=== PATIENT | male | born 1960 | race Caucasian/White ===

== ENCOUNTER → 2016-05-06 | Outpatient (REF) | payer OTHER | LOC: M SFHCPLAZ 13:16 | PROVIDERS: ATTEND Nurse Practitioner Adult Health | DX: Z00.00 Encounter for general adult medical examination without abnormal findings (principal); Z53.8 Procedure and treatment not carried out for other reasons ==

== ENCOUNTER 2018-12-22 20:15 | Emergency (ER) | payer MEDICAID, OTHER, SELFPAY ==
[~2018-12-22] VITALS: Ht 180.3 cm; Wt 88.6 kg
[2018-12-22] MEDS ORDERED: ONDANSETRON 4 MG ORAL DISINTEGRATING TAB (Q0162 PER 1MG) PO ONE (20:30)
--- NOTE | 2018-12-22 21:18 | REPVR ---
PROCEDURE INFORMATION: Exam: CT Head Without Contrast Exam date and time: 12/22/2018 8:48 PM Clinical history: 58 years old, male; Injury or trauma; Fall; Initial encounter; Additional info: Fall head injury TECHNIQUE: Imaging protocol: Computed tomography of the head without contrast. Radiation optimization: All CT scans at this facility use at least one of these dose optimization techniques: automated exposure control; mA and/or kV adjustment per patient size (includes targeted exams where dose is matched to clinical indication); or iterative reconstruction. COMPARISON: No relevant prior studies available. FINDINGS: Brain: Normal. No hemorrhage. Unremarkable white matter. No mass effect. Ventricles: Normal. No ventriculomegaly. Bones/joints: Unremarkable. No acute fracture. Sinuses: Visualized sinuses are unremarkable. No fluid levels. Mastoid air cells: Visualized mastoid air cells are well aerated. Soft tissues: Unremarkable. IMPRESSION: No acute intracranial abnormality. Electronically signed by: Nick Mejia On 12/22/2018 21:18:03 PM
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
[2018-12-22 23:33] VITALS: BP 134/84
[2018-12-23] MEDS ORDERED: TRAZ-163 (14:28)
[2018-12-23] MEDS ORDERED: OXCA300T14 (14:28)
[2018-12-23] MEDS ORDERED: HYDR50TA70 (14:28)
[2018-12-23] MEDS ORDERED: OLAN20TA14 (14:28)
[2018-12-23] MEDS ORDERED: VENTAER (17:27)
[2018-12-23] MEDS ORDERED: ZOLO25TA PO (17:27)
== END 2018-12-22 23:34 | disposition home or self-care (01) ==
LOC: M ED 20:15
DX: F10.20 Alcohol dependence, uncomplicated (principal); S00.01XA Abrasion of scalp, initial encounter; V18.0XXA Pedal cycle driver injured in noncollision transport accident in nontraffic accident, initial encounter; Y92.410 Unspecified street and highway as the place of occurrence of the external cause; Z79.899 Other long term (current) drug therapy
CPT/HCPCS: 70450; 72125; 99283; Q0162

== ENCOUNTER 2018-12-23 14:13 | Emergency (ER) | payer MEDICAID, OTHER ==
[~2018-12-23] VITALS: Ht 180.3 cm; Wt 90.7 kg
[2018-12-23] MEDS ORDERED: OLAN20TA14 (14:28)
[2018-12-23] MEDS ORDERED: TRAZ-163 (14:28)
[2018-12-23] MEDS ORDERED: OXCA300T14 (14:28)
[2018-12-23] MEDS ORDERED: HYDR50TA70 (14:28)
--- NOTE | 2018-12-23 16:53 | REP ---
Right shoulder: Three views: History: Pain. Findings: Three views of the right shoulder demonstrate normal alignment of the glenohumeral articulation. There is mild widening of the AC joint. The distal clavicle is positioned slightly superior where relative to the acromion process. This raises a question of AC separation injury. No fracture is seen. Impression: Question first degree AC separation injury. No fracture noted. Electronically Signed by Gómez Collins MD 12/23/2018 06:40 P
--- NOTE | 2018-12-23 16:54 | REP ---
Right rib series: Five views including PA chest. History: Pain. Findings: PA chest radiograph is unremarkable. There is no evidence of pneumothorax or hydrothorax. Mediastinum is not widened. Heart is not enlarged. Multiple views of the right ribcage demonstrate a very slightly displaced fracture of the anterolateral 6th rib. Equivocal 5th and 4th rib fractures are noted. No other fracture is seen. Impression: Right anterolateral 6th rib fracture. Question right fourth and fifth rib fractures. Electronically Signed by Gómez Collins MD 12/23/2018 06:40 P
[2018-12-23] MEDS ORDERED: ZOLO25TA PO (17:27)
[2018-12-23] MEDS ORDERED: VENTAER (17:27)
[2018-12-23] MEDS ORDERED: ACETAMINOPHEN 325 MG TAB PO ONE (17:45)
[2018-12-23 19:06] VITALS: BP 145/89
== END 2018-12-23 19:10 | disposition home or self-care (01) ==
LOC: M ED 14:13
DX: S22.31XA Fracture of one rib, right side, initial encounter for closed fracture (principal); S43.51XA Sprain of right acromioclavicular joint, initial encounter; V18.0XXA Pedal cycle driver injured in noncollision transport accident in nontraffic accident, initial encounter; Y92.018 Other place in single-family (private) house as the place of occurrence of the external cause; Z79.899 Other long term (current) drug therapy

== ENCOUNTER 2019-02-19 16:42 | Inpatient (IN) | payer MEDICAID, OTHER ==
[~2019-02-19] VITALS: Ht 180.3 cm; Wt 86.2 kg
[~2019-02-19 16:42] MED LIST: HYDR50TA70; OLAN20TA14; OXCA300T14; TRAZ-163 PO; VENTAER INH; ZOLO25TA PO
[2019-02-19] MEDS ORDERED: MORPHINE 4 MG/ML 1ML VIAL/SYRINGE (J2270) IV ONE ×2 (17:00→18:30)
--- NOTE | 2019-02-19 18:22 | REP ---
PELVIS AND RIGHT HIP: AP view of the pelvis and AP and frogleg views of the right hip are performed. There is a nondisplaced fracture of the right femoral neck. I see no other evidence of acute fracture or dislocation. IMPRESSION: Nondisplaced fracture right femoral neck. Electronically Signed by Neto Arrieta MD 02/24/2019 09:57 A
[2019-02-19] MEDS ORDERED: NS 1,000 ML IV SCH (18:30)
--- NOTE | 2019-02-19 18:48 | REP ---
RIGHT FEMUR: AP and lateral views of the right femur were performed. There is a nondisplaced fracture of the right femoral neck. No other acute fracture or dislocation is seen. IMPRESSION: Nondisplaced fracture right femoral neck. Electronically Signed by Neto Arrieta MD 02/24/2019 09:57 A
[2019-02-19 19:05] LABS: BASO % 0.4 % (0.0-1.0); EOS # 0.1 10^3/uL (0.0-0.5); EOS % 1.3 % (0.0-3.0); HEMATOCRIT 46.7 % (42.0-52.0); HEMOGLOBIN 15.6 g/dl (13.5-17.5); LYMPH # 2.5 10^3/uL (1.5-5.0); LYMPH % 32.5 % (24.0-44.0); MEAN CORPUSCULAR HEMOGLOBIN 30.1 pg (27.0-33.0); MEAN CORPUSCULAR HGB CONC 33.4 g/dl (32.0-36.5); MEAN CORPUSCULAR VOLUME 90.2 fl (80.0-96.0); MONO # 0.3 10^3/uL (0.0-0.8); MONO % 4.4 % (0.0-5.0); NEUTROPHILS # 4.7 10^3/uL (1.5-8.5); NEUTROPHILS % 61.1 % (36.0-66.0); PLATELET COUNT, AUTOMATED 210 10^3/uL (150-450); RED BLOOD COUNT 5.18 10^6/uL (4.30-6.10); WHITE BLOOD COUNT 7.7 10^3/uL (4.0-10.0)
[2019-02-19] MEDS ORDERED: OLAN5TAB PO (19:18)
[2019-02-19] MEDS ORDERED: NALT50TA4 PO (19:18)
[2019-02-19] MEDS ORDERED: SERT-138 PO (19:18)
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
[2019-02-19 19:33] LABS: BLOOD UREA NITROGEN 16 MG/DL (7-18); CALCIUM LEVEL 8.8 MG/DL (8.5-10.1); CARBON DIOXIDE LEVEL 26 MEQ/L (21-32); CHLORIDE LEVEL 107 MEQ/L (98-107); ETHYL ALCOHOL (ETHANOL) 0.094 % (0.000-0.010); GLOMERULAR FILTRATION RATE > 60.0 (>56); GLUCOSE, FASTING 87 MG/DL (70-100); POTASSIUM SERUM 4.3 MEQ/L (3.5-5.1); SODIUM LEVEL 141 MEQ/L (136-145)
[2019-02-19] MEDS ORDERED: ACETAMINOPHEN *IV* 1,000 MG in IV 1 EA IV ONE (20:00)
[2019-02-19] MEDS ORDERED: LR 1,000 ML IV SCH (20:00)
[2019-02-19] MEDS ORDERED: LORazepam 2 MG/ML VIAL (J2060) IV PRN ×2 (20:00→21:30)
[2019-02-19] MEDS: MORPHINE 2 MG/ML 1ML VIAL (J2270) IV PRN ×2 (20:29→22:46)
[2019-02-19 20:39] LABS: NT-PRO BNP 53 PG/ML (<125)
--- NOTE | 2019-02-19 21:30 | REPVR ---
PROCEDURE INFORMATION: Exam: CT Pelvis Without Contrast; Skeletal Exam date and time: 02/19/2019 8:54 PM Age: 58 years old Clinical history: Injury or trauma; Fall; Initial encounter; Fracture of pelvis & hip; Right; Not specified; Neck of femur; Additional info: Trauma, per ortho TECHNIQUE: Imaging protocol: Computed tomography images of the pelvis without contrast. Exam focused on the skeletal structures. Radiation optimization: All CT scans at this facility use at least one of these dose optimization techniques: automated exposure control; mA and/or kV adjustment per patient size (includes targeted exams where dose is matched to clinical indication); or iterative reconstruction. COMPARISON: CR Hip,AP,LAT to include Pelvis 02/19/2019 5:45 PM FINDINGS: Symphysis and sacroiliac joints are aligned normally. Acute impacted nondisplaced right oblique femoral neck fracture. Obturator rings appear intact. No evidence of femoral head osteonecrosis. No osseous lesion. Hip joint spaces are appropriate for age. Soft tissues of the pelvis are unremarkable. IMPRESSION: Acute nondisplaced slightly impacted right femoral neck fracture without underlying osseous injury Electronically signed by: Abad Conde On 02/19/2019 21:30:15 PM
[2019-02-19 21:40] VITALS: BP 121/84
[2019-02-19 22:00] VITALS: BP 121/84
[2019-02-19] MEDS ORDERED: ALBUTEROL 90 MCG/ACT 8GM HFA INHALER INH PRN (22:00)
[2019-02-19 22:33] LABS: INR 1.06; PROTHROMBIN TIME 13.5 SECONDS (11.8-14.0)
[2019-02-19] MEDS: NALTREXONE 50 MG TAB PO SCH ×2 (22:42→22:53)
[2019-02-19] MEDS: traZODone 100 MG TAB PO SCH (22:44)
[2019-02-19] MEDS: OLANZapine 5 MG TAB PO SCH (22:45)
[2019-02-19] MEDS: FOLIC ACID 1 MG in NS 50 ML IV SCH (22:46)
[2019-02-19] MEDS: LR 1,000 ML IV SCH (22:47)
[2019-02-20] MEDS: MORPHINE 2 MG/ML 1ML VIAL (J2270) IV PRN ×8 (00:43→18:39)
--- NOTE | 2019-02-20 05:22 | REP ---
CHEST, TWO VIEWS: There is no evidence of acute infiltrate. No pleural effusion is seen. The heart is normal in size. The mediastinal silhouette is unremarkable. The visualized osseous structures are intact. IMPRESSION: No acute pulmonary disease. Electronically Signed by Neto Arrieta MD 02/24/2019 10:11 A
[2019-02-20 06:00] VITALS: BP 145/73
[2019-02-20 06:23] LABS: HEMATOCRIT 43.8 % (42.0-52.0); HEMOGLOBIN 14.8 g/dl (13.5-17.5); MEAN CORPUSCULAR HEMOGLOBIN 30.6 pg (27.0-33.0); MEAN CORPUSCULAR HGB CONC 33.8 g/dl (32.0-36.5); MEAN CORPUSCULAR VOLUME 90.7 fl (80.0-96.0); PLATELET COUNT, AUTOMATED 158 10^3/uL (150-450); RED BLOOD COUNT 4.83 10^6/uL (4.30-6.10); WHITE BLOOD COUNT 7.5 10^3/uL (4.0-10.0)
[2019-02-20 06:46] LABS: INR 1.18; PROTHROMBIN TIME 14.7 SECONDS (11.8-14.0)
[2019-02-20 06:48] LABS: BLOOD UREA NITROGEN 12 MG/DL (7-18); CALCIUM LEVEL 8.5 MG/DL (8.5-10.1); CARBON DIOXIDE LEVEL 27 MEQ/L (21-32); CHLORIDE LEVEL 101 MEQ/L (98-107); CREATININE FOR GFR 1.01 MG/DL (0.70-1.30); GLOMERULAR FILTRATION RATE > 60.0 (>56); GLUCOSE, FASTING 106 MG/DL (70-100); POTASSIUM SERUM 3.9 MEQ/L (3.5-5.1); SODIUM LEVEL 137 MEQ/L (136-145)
[2019-02-20] MEDS: LR 1,000 ML IV SCH ×2 (08:54→18:39)
[2019-02-20] MEDS: SERTRALINE 100 MG TAB PO SCH (08:55)
[2019-02-20] MEDS: THIAMINE HCL 200 MG/2 ML VIAL (J3411) IM SCH (08:55)
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
[2019-02-20 14:00] VITALS: BP 138/85
[2019-02-20] MEDS ORDERED: ceFAZolin SOD 2 GM in IV 1 EA IV ONE (17:45)
--- NOTE | 2019-02-20 17:51 | IPNPDOC ---
Date Seen The patient was seen on 02/20/19. Progress Note SUBJECTIVE: Patient reports having significant pain in the R. hip in morning but otherwise denies any other complaints. Denies any SOB. No acute events reported overnight. Planned for surgery today. OBJECTIVE PHYSICAL EXAMINATION: VITAL SIGNS: Please see below. General: Mild to moderate distress, Alert Eyes: Normal sclera, EOMI, MARGARITA HENT: Atraumatic Cardiovascular: Normal rate, normal rhythm. Pulmonary: Clear to auscultation b/l, no wheezing GI: Soft, nontender, nondistended MSK: reduced ROM RLE due to pain. Skin: Warm and dry Neuro: CN grossly intact. No focal deficits. Strengths equal b/l. Psych: oriented x 3 LABORATORY DATA, IMAGING STUDIES, MICROBIOLOGY: Please see below. ASSESSMENT AND PLAN: 1. R. femoral neck fracture 2/2 mechanical fall - Planned or surgery today with Ortho. NPO - Pain control. - PT eval and treatment. - Fall precautions. 2. Osteoporosis - definition of osteoporosis due to fragility fracture given age. - will need work up and treatment as outpatient. 3. Asthma - Not in exacerbation. Denies any SOB. - Albuterol PRN. 4. Depression/anxiety - resume home meds. 5. Alcohol use - Thiamine, folate and multivitamin. DVT ppx: SCDs and likely xarelto post op VS, I&O, 24H, Fishbone Vital Signs/I&O Vital Signs Date Time Temp Pulse Resp B/P (MAP) Pulse Ox O2 Delivery O2 Flow Rate FiO2 02/20/19 16:05 16 02/20/19 14:00 99.2 72 138/85 (102) 92 Room Air I&O- Last 24 Hours up to 6 AM 02/20/19 06:00 Intake Total 870.2 ml Output Total 200 ml Balance 670.2 ml Laboratory Data 24H LABS Laboratory Tests 2 02/19/19 18:53: Immature Granulocyte % (Auto) 0.3, Neutrophils (%) (Auto) 61.1, Lymphocytes (%) (Auto) 32.5, Monocytes (%) (Auto) 4.4, Eosinophils (%) (Auto) 1.3, Basophils (%) (Auto) 0.4, Neutrophils # (Auto) 4.7, Lymphocytes # (Auto) 2.5, Monocytes # (Auto) 0.3, Eosinophils # (Auto) 0.1, Basophils # (Auto) 0.0, Nucleated Red Blood Cells % (auto) 0.0, Anion Gap 8, Glomerular Filtration Rate > 60.0, Calcium Level 8.8, JL-Qle-V-Type Natriuretic Peptide 53, Ethyl Alcohol Level 0.094H 02/19/19 22:08: Prothrombin Time 13.5, Prothromb Time International Ratio 1.06 02/20/19 05:22: Nucleated Red Blood Cells % (auto) 0.0, Anion Gap 9, Glomerular Filtration Rate > 60.0, Calcium Level 8.5, Prothrombin Time 14.7H, Prothromb Time International Ratio 1.18 CBC/BMP Laboratory Tests 02/19/19 18:53 02/20/19 05:22 DUY PAINTING MD Feb 20, 2019 17:51
--- NOTE | 2019-02-20 17:56 | ECGEPIP ---
[facility] - ED Test Date: 2019-02-19 Pat Name: HAMILTON LERMA Department: Room: [place] [address] Gender: Male Area Sales Manager: raman : 1960 Requested By: MATTIE Olivia Order Number: [id number] Reading MD: Ida Amezcua Measurements Intervals [place] Rate: 86 P: 81 NM: 171 QRS: 77 QRSD: 86 T: 75 QT: 348 QTc: 416 Interpretive Statements SINUS RHYTHM MINIMAL ST DEPRESSION baseline artifact may affect interpretation NO PRIOR Electronically Signed on 02-20-2019 17:56:42 EST by Ida Amezcua
[2019-02-20 20:06] VITALS: BP 175/73
[2019-02-20] MEDS ORDERED: PROPOFOL 200 MG/20 ML VIAL As Ordered ONE (20:39)
[2019-02-20] MEDS ORDERED: MIDAZOLAM INJ 2 MG/2 ML VIAL (J2250) As Ordered ONE (20:39)
[2019-02-20] MEDS ORDERED: LIDOCAINE 2% INJ 100 MG/5 ML SDV (FOR ANES.) As Ordered ONE (20:39)
[2019-02-20] MEDS ORDERED: fentaNYL 250 MCG/5 ML INJECTION (J3010) As Ordered ONE (20:39)
[2019-02-20] MEDS ORDERED: dexameTHASONE 4 MG/ML 1ML VIAL (J1100) As Ordered ONE (20:40)
[2019-02-20] MEDS ORDERED: ONDANSETRON 4MG/2ML VIAL (J2405) As Ordered ONE (20:40)
[2019-02-20] MEDS ORDERED: ceFAZolin 2 GM/D5W 50 ML IV BAG (J0690 PER 500MG) As Ordered ONE (21:22)
[2019-02-20] MEDS ORDERED: METOCLOPRAMIDE INJ 10MG/2ML VIAL (J2765) IV PRN (22:15)
[2019-02-20] MEDS ORDERED: fentaNYL 100 MCG/2 ML INJECTION (J3010) IV PRN (22:15)
[2019-02-20] MEDS ORDERED: MEPERIDINE INJ 25 MG/ML VIAL (J2175) IV PRN (22:15)
[2019-02-20] MEDS ORDERED: ONDANSETRON 4MG/2ML VIAL (J2405) IV PRN (22:15)
[2019-02-20] MEDS ORDERED: oxyCODONE 5MG TAB PO PRN (22:15)
[2019-02-20] MEDS ORDERED: LR 1,000 ML IV SCH (22:15)
[2019-02-20 22:30] VITALS: BP 171/77
[2019-02-20] MEDS ORDERED: oxyCODONE 5MG TAB As Ordered ONE (22:41)
[2019-02-20 23:00] VITALS: BP 171/77
[2019-02-20] MEDS: NALTREXONE 50 MG TAB PO SCH (23:08)
[2019-02-20] MEDS: FOLIC ACID 1 MG in NS 50 ML IV SCH (23:09)
[2019-02-20] MEDS: traZODone 100 MG TAB PO SCH (23:09)
[2019-02-20] MEDS: OLANZapine 5 MG TAB PO SCH (23:09)
[2019-02-20 23:24] VITALS: BP 168/81
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
[2019-02-21] VITALS (8 sets, daily range): BP systolic 128–150; BP diastolic 76–92
[2019-02-21] MEDS: MORPHINE 2 MG/ML 1ML VIAL (J2270) IV PRN ×2 (00:08→04:54)
[2019-02-21] MEDS: ceFAZolin SOD 1 GM in D5W MINI-BAG PLUS 50 ML IV SCH ×3 (05:28→22:05)
[2019-02-21] MEDS ORDERED: PERCOCET 5MG/325MG TAB PO PRN (05:45)
[2019-02-21 06:29] LABS: INR 1.2; PROTHROMBIN TIME 14.9 SECONDS (11.8-14.0)
--- NOTE | 2019-02-21 08:19 | REP ---
Right hip: Five views limited study. History: Hip fracture repair. Comparison right hip radiographs February 19, 2019. 3 minutes 15 seconds of fluoroscopy time is reported. Findings: A sequence of five last image hold fluoroscopically obtained spot radiographs of the hip document orthopedic pinning procedure. No laterality markers are visible. Electronically Signed by Gómez Collins MD 02/21/2019 01:00 P
[2019-02-21] MEDS: SENOKOT S TAB PO SCH ×2 (09:00→21:00)
[2019-02-21] MEDS: MOM 30ML SUSPENSION UDC PO SCH (09:00)
[2019-02-21] MEDS: MIRALAX *UNIT DOSE* 17GM PACKET PO SCH (09:00)
[2019-02-21 09:13] LABS: HEMATOCRIT 42.4 % (42.0-52.0); MEAN CORPUSCULAR HEMOGLOBIN 30.2 pg (27.0-33.0); MEAN CORPUSCULAR VOLUME 91.4 fl (80.0-96.0); PLATELET COUNT, AUTOMATED 137 10^3/uL (150-450); RED BLOOD COUNT 4.64 10^6/uL (4.30-6.10); WHITE BLOOD COUNT 5.3 10^3/uL (4.0-10.0)
[2019-02-21 09:20] LABS: BLOOD UREA NITROGEN 9 MG/DL (7-18); CALCIUM LEVEL 8.6 MG/DL (8.5-10.1); CARBON DIOXIDE LEVEL 26 MEQ/L (21-32); CHLORIDE LEVEL 105 MEQ/L (98-107); CREATININE FOR GFR 0.92 MG/DL (0.70-1.30); GLOMERULAR FILTRATION RATE > 60.0 (>56); GLUCOSE, FASTING 142 MG/DL (70-100); POTASSIUM SERUM 4.1 MEQ/L (3.5-5.1); SODIUM LEVEL 139 MEQ/L (136-145)
[2019-02-21] MEDS: THIAMINE HCL 200 MG/2 ML VIAL (J3411) IM SCH (09:23)
[2019-02-21] MEDS: SERTRALINE 100 MG TAB PO SCH (09:23)
[2019-02-21] MEDS: PERCOCET 5MG/325MG TAB PO PRN ×4 (09:29→22:04)
[2019-02-21] MEDS: RIVAROXABAN 10 MG TAB (XARELTO) PO SCH (17:47)
--- NOTE | 2019-02-21 19:10 | IPNPDOC ---
Date Seen The patient was seen on 02/21/19. Progress Note SUBJECTIVE: Patient reports having R. hip pain post op as expected but otherwise reports no other complaints. Started working with PT today. OBJECTIVE PHYSICAL EXAMINATION: VITAL SIGNS: Please see below. General: Mild distress, Alert Eyes: Normal sclera, EOMI, MARGARITA HENT: Atraumatic Cardiovascular: Normal rate, normal rhythm. Pulmonary: Clear to auscultation b/l, no wheezing GI: Soft, nontender, nondistended MSK: reduced ROM RLE due to pain. Skin: Warm and dry Neuro: CN grossly intact. No focal deficits. Strengths equal b/l. Psych: oriented x 3 LABORATORY DATA, IMAGING STUDIES, MICROBIOLOGY: Please see below. ASSESSMENT AND PLAN: 1. R. femoral neck fracture / mechanical fall - s/p surgery 02/21 with ortho. - Pain control. - PT eval and treatment. 2. Osteoporosis - definition of osteoporosis due to fragility fracture given age. - will need work up and treatment as outpatient. 3. Asthma - Not in exacerbation. Denies any SOB. - Albuterol PRN. 4. Depression/anxiety - resume home meds. 5. Alcohol use - Thiamine, folate and multivitamin. DVT ppx: SCDs and Xarelto VS, I&O, 24H, Fishbone Vital Signs/I&O Vital Signs Date Time Temp Pulse Resp B/P (MAP) Pulse Ox O2 Delivery O2 Flow Rate FiO2 02/21/19 18:18 20 02/21/19 14:00 74 137/79 02/21/19 14:00 98.3 94 Room Air 02/20/19 22:16 2 I&O- Last 24 Hours up to 6 AM 02/21/19 06:00 Intake Total 2200 ml Output Total 1850 ml Balance 350 ml Laboratory Data 24H LABS Laboratory Tests 2 02/21/19 05:25: Nucleated Red Blood Cells % (auto) 0.0, Anion Gap 8, Glomerular Filtration Rate > 60.0, Calcium Level 8.6 02/21/19 05:29: Prothrombin Time 14.9H, Prothromb Time International Ratio 1.20 CBC/BMP Laboratory Tests 02/21/19 05:25 DUY PAINTING MD Feb 21, 2019 19:09
[2019-02-21] MEDS: NALTREXONE 50 MG TAB PO SCH (21:00)
[2019-02-21] MEDS: OLANZapine 5 MG TAB PO SCH (22:03)
[2019-02-21] MEDS: traZODone 100 MG TAB PO SCH (22:05)
[2019-02-21] MEDS: FOLIC ACID 1 MG in NS 50 ML IV SCH (22:58)
[2019-02-22 06:00] VITALS: BP 137/86
[2019-02-22 06:10] VITALS: BP 137/86
[2019-02-22] MEDS: PERCOCET 5MG/325MG TAB PO PRN ×4 (06:15→20:46)
[2019-02-22 07:20] LABS: INR 1.4; PROTHROMBIN TIME 16.9 SECONDS (11.8-14.0)
[2019-02-22] MEDS: MOM 30ML SUSPENSION UDC PO SCH (09:00)
[2019-02-22] MEDS: THIAMINE HCL 200 MG/2 ML VIAL (J3411) IM SCH (09:00)
[2019-02-22] MEDS: SENOKOT S TAB PO SCH ×2 (09:00→20:47)
[2019-02-22] MEDS: MIRALAX *UNIT DOSE* 17GM PACKET PO SCH (09:00)
[2019-02-22] MEDS: SERTRALINE 100 MG TAB PO SCH (09:43)
[2019-02-22 14:00] VITALS: BP_SYST 116; BP_SYST 120; BP_DIAS 45; BP_DIAS 83
--- NOTE | 2019-02-22 15:08 | IPNPDOC ---
Date Seen The patient was seen on 02/22/19. Progress Note SUBJECTIVE: Patient reports persistent pain over surgical site but improving. Had been working with PT. No acute events reported overnight. OBJECTIVE PHYSICAL EXAMINATION: VITAL SIGNS: Please see below. General: Mild distress, Alert Eyes: Normal sclera, EOMI, MARGARITA HENT: Atraumatic Cardiovascular: Normal rate, normal rhythm. Pulmonary: Clear to auscultation b/l, no wheezing GI: Soft, nontender, nondistended MSK: reduced ROM RLE due to pain. Skin: Warm and dry Neuro: CN grossly intact. No focal deficits. Strengths equal b/l. Psych: oriented x 3 LABORATORY DATA, IMAGING STUDIES, MICROBIOLOGY: Please see below. ASSESSMENT AND PLAN: 1. R. femoral neck fracture / mechanical fall - s/p surgery 02/21 with ortho. - Pain control. - PT eval and treatment. 2. Osteoporosis - definition of osteoporosis due to fragility fracture given age. - will need work up and treatment as outpatient. 3. Asthma - Not in exacerbation. Denies any SOB. - Albuterol PRN. 4. Depression/anxiety - resume home meds. 5. Alcohol use - Thiamine, folate and multivitamin. DVT ppx: SCDs and Xarelto Dispo: Pending PT clearance and placement. Likely will need Rehab, patient lives alone at home. VS, I&O, 24H, Fishbone Vital Signs/I&O Vital Signs Date Time Temp Pulse Resp B/P (MAP) Pulse Ox O2 Delivery O2 Flow Rate FiO2 02/22/19 12:23 18 Room Air 02/22/19 06:10 98.9 78 137/86 (103) 92 02/20/19 22:16 2 I&O- Last 24 Hours up to 6 AM 02/22/19 06:00 Intake Total 3680.2 ml Output Total 3800 ml Balance -119.8 ml Laboratory Data 24H LABS Laboratory Tests 2 02/22/19 06:08: Prothrombin Time 16.9H, Prothromb Time International Ratio 1.40 DUY PAINTING MD Feb 22, 2019 15:08
[2019-02-22] MEDS: RIVAROXABAN 10 MG TAB (XARELTO) PO SCH (18:08)
[2019-02-22 20:36] VITALS: BP 120/83
[2019-02-22] MEDS: NALTREXONE 50 MG TAB PO SCH (20:45)
[2019-02-22] MEDS: OLANZapine 5 MG TAB PO SCH (20:45)
[2019-02-22] MEDS: traZODone 100 MG TAB PO SCH (20:45)
[2019-02-22] MEDS: FOLIC ACID 1 MG in NS 50 ML IV SCH (21:17)
[2019-02-23] MEDS: PERCOCET 5MG/325MG TAB PO PRN ×4 (06:13→18:45)
[2019-02-23 06:14] VITALS: BP 123/83
[2019-02-23] MEDS: MIRALAX *UNIT DOSE* 17GM PACKET PO SCH (09:00)
[2019-02-23] MEDS: THIAMINE HCL 200 MG/2 ML VIAL (J3411) IM SCH (09:00)
[2019-02-23] MEDS: MOM 30ML SUSPENSION UDC PO SCH (09:00)
[2019-02-23] MEDS: SENOKOT S TAB PO SCH ×2 (09:00→21:00)
[2019-02-23] MEDS: SERTRALINE 100 MG TAB PO SCH (09:08)
[2019-02-23 14:00] VITALS: BP 124/86
--- NOTE | 2019-02-23 14:48 | IPNPDOC ---
Date Seen The patient was seen on 02/23/19. Progress Note SUBJECTIVE: Patient still complains of pain today, 09/18 this morning. Work with PT but reportedly limited. OBJECTIVE PHYSICAL EXAMINATION: VITAL SIGNS: Please see below. General: Mild to moderate distress, Alert Eyes: Normal sclera, EOMI, MARGARITA HENT: Atraumatic Cardiovascular: Normal rate, normal rhythm. Pulmonary: Clear to auscultation b/l, no wheezing GI: Soft, nontender, nondistended MSK: reduced ROM RLE due to pain. Skin: Warm and dry Neuro: CN grossly intact. No focal deficits. Strengths equal b/l. Psych: oriented x 3 LABORATORY DATA, IMAGING STUDIES, MICROBIOLOGY: Please see below. ASSESSMENT AND PLAN: 1. R. femoral neck fracture / mechanical fall - s/p surgery 02/21 with ortho. - Pain control. - PT eval and treatment. 2. Osteoporosis - definition of osteoporosis due to fragility fracture given age. - will need work up and treatment as outpatient. 3. Asthma - Not in exacerbation. Denies any SOB. - Albuterol PRN. 4. Depression/anxiety - resume home meds. 5. Alcohol use - Thiamine, folate and multivitamin. DVT ppx: SCDs and Xarelto Dispo: Pending PT clearance and placement. Likely will need Rehab, patient lives alone at home. VS, I&O, 24H, Fishbone Vital Signs/I&O Vital Signs Date Time Temp Pulse Resp B/P (MAP) Pulse Ox O2 Delivery O2 Flow Rate FiO2 02/23/19 14:38 18 Room Air 02/23/19 06:14 98.7 73 123/83 (96) 93 02/20/19 22:16 2 I&O- Last 24 Hours up to 6 AM 02/23/19 06:00 Intake Total 2385.2 ml Output Total 1275 ml Balance 1110.2 ml DUY PAINTING MD Feb 23, 2019 14:48
[2019-02-23] MEDS: RIVAROXABAN 10 MG TAB (XARELTO) PO SCH (18:44)
[2019-02-23 19:30] VITALS: BP 139/78
[2019-02-23] MEDS: BACTRIM 160MG/800MG DS TAB PO SCH (21:08)
[2019-02-23] MEDS: NALTREXONE 50 MG TAB PO SCH (21:08)
[2019-02-23] MEDS: traZODone 100 MG TAB PO SCH (21:08)
[2019-02-23] MEDS: OLANZapine 5 MG TAB PO SCH (21:08)
[2019-02-23] MEDS: FOLIC ACID 1 MG in NS 50 ML IV SCH (21:09)
[2019-02-24 05:20] VITALS: BP 138/84
[2019-02-24] MEDS: PERCOCET 5MG/325MG TAB PO PRN ×4 (05:27→18:01)
[2019-02-24] MEDS ORDERED: XARE10TA PO (07:01)
[2019-02-24] MEDS ORDERED: PERC5TAB12 PO (07:01)
[2019-02-24] MEDS: SERTRALINE 100 MG TAB PO SCH (08:28)
[2019-02-24] MEDS: MOM 30ML SUSPENSION UDC PO SCH (08:28)
[2019-02-24] MEDS: BACTRIM 160MG/800MG DS TAB PO SCH ×2 (08:28→20:37)
[2019-02-24] MEDS: THIAMINE HCL 200 MG/2 ML VIAL (J3411) IM SCH (08:29)
[2019-02-24] MEDS: MIRALAX *UNIT DOSE* 17GM PACKET PO SCH (08:29)
[2019-02-24] MEDS: SENOKOT S TAB PO SCH ×2 (08:29→20:37)
--- NOTE | 2019-02-24 09:46 | IPNPDOC ---
Text Note Date of Service The patient was seen on 02/24/19. NOTE SUBJECTIVE: Patient seen and examined at bedside. No acute overnight events reported. No new medical complaints this morning. Objective: General: NAD, lying comfortably in bed HEENT: NC/AT, facial erythema Heart: +S1S2, RRR Lungs; CTA B/L ABd: soft, NT, +BS Ext: no edema ASSESSMENT AND PLAN: 1. R. femoral neck fracture / mechanical fall - s/p surgery 02/21 with ortho. - Pain control. - PT eval and treatment. - further recs as per ortho - assistance appreciated 2. Osteoporosis - definition of osteoporosis due to fragility fracture given age. - will need work up and treatment as outpatient. 3. Asthma - Not in exacerbation. Denies any SOB. - Albuterol PRN. 4. Depression/anxiety - resume home meds. 5. Alcohol use - Thiamine, folate and multivitamin. DVT ppx: as per ortho - SCDs and Xarelto Dispo: Pending PT clearance and placement. Likely will need Rehab, patient lives alone at home. VS,Fishbone, I+O VS, Fishbone, I+O Vital Signs Date Time Temp Pulse Resp B/P (MAP) Pulse Ox O2 Delivery O2 Flow Rate FiO2 02/24/19 05:58 17 02/24/19 05:27 Room Air 02/24/19 05:20 97.7 77 138/84 (102) 98 02/20/19 22:16 2 I&O- Last 24 Hours up to 6 AM 02/24/19 05:59 Intake Total 1260 ml Output Total 700 ml Balance 560 ml JULISA ANN MD Feb 24, 2019 09:46
[2019-02-24 15:35] VITALS: BP 138/83
[2019-02-24] MEDS: RIVAROXABAN 10 MG TAB (XARELTO) PO SCH (18:01)
[2019-02-24] MEDS: traZODone 100 MG TAB PO SCH (20:37)
[2019-02-24] MEDS: OLANZapine 5 MG TAB PO SCH (20:37)
[2019-02-24] MEDS: NALTREXONE 50 MG TAB PO SCH (20:37)
[2019-02-24 22:19] VITALS: BP 135/80
[2019-02-25] MEDS: PERCOCET 5MG/325MG TAB PO PRN ×2 (05:03→10:50)
[2019-02-25] MEDS ORDERED: XARE10TA PO (05:47)
[2019-02-25] MEDS ORDERED: PERC5TAB12 PO (05:47)
[2019-02-25 06:26] VITALS: BP 146/79
[2019-02-25] MEDS: SENOKOT S TAB PO SCH (08:15)
[2019-02-25] MEDS: MOM 30ML SUSPENSION UDC PO SCH (08:15)
[2019-02-25] MEDS: SERTRALINE 100 MG TAB PO SCH (08:15)
[2019-02-25] MEDS: BACTRIM 160MG/800MG DS TAB PO SCH (08:15)
[2019-02-25] MEDS: MIRALAX *UNIT DOSE* 17GM PACKET PO SCH (08:15)
[2019-02-25] MEDS ORDERED: FOLIC ACID 1 MG TAB PO SCH (09:00)
[2019-02-25] MEDS ORDERED: THIAMINE 100 MG TAB PO SCH (09:00)
[2019-02-25] MEDS ORDERED: FOLI1TAB11 PO (10:55)
[2019-02-25] MEDS ORDERED: THIA100TA PO (10:55)
[2019-02-25] MEDS ORDERED: SULF1TAB93 PO (10:58)
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
== END 2019-02-25 13:10 | disposition home or self-care (01) | DRG 308 ==
LOC: EDBD 16:42 → M ED 16:42 → M ED INP 19:17 → M MS5PR 21:38
PROVIDERS: ADMIT Internal Medicine; ATTEND Internal Medicine Nephrology
PROC: 0QS634Z Reposition Right Upper Femur with Internal Fixation Device, Percutaneous Approach (ICD-10-PCS; principal; 2019-02-20 20:00)
DX: S72.044A Nondisplaced fracture of base of neck of right femur, initial encounter for closed fracture (principal); F32.9 Major depressive disorder, single episode, unspecified; W01.198A Fall on same level from slipping, tripping and stumbling with subsequent striking against other object, initial encounter; Y93.55 Activity, bike riding; F43.10 Post-traumatic stress disorder, unspecified; J45.909 Unspecified asthma, uncomplicated; M81.0 Age-related osteoporosis without current pathological fracture; F41.9 Anxiety disorder, unspecified; F10.21 Alcohol dependence, in remission; Z79.899 Other long term (current) drug therapy

== ENCOUNTER → 2020-01-26 | Outpatient (REF) | payer OTHER ==
[~2020-01-26] MED LIST changes: +FOLI1TAB11 PO; +NALT50TA4 PO; +OLAN5TAB PO; +PERC5TAB12 PO; +SERT-138 PO; +SULF1TAB93 PO; +THIA100TA PO; -TRAZ-163 PO; +TRAZ-257 PO; +XARE10TA PO
[2020-01-26 17:10] LABS: BASO # 0.1 10^3/uL (0.0-0.2); BASO % 0.8 % (0.0-1.0); EOS # 0.2 10^3/uL (0.0-0.5); EOS % 2.4 % (0.0-3.0); HEMATOCRIT 47.6 % (42.0-52.0); HEMOGLOBIN 15.7 g/dl (13.5-17.5); LYMPH # 2.6 10^3/uL (1.5-5.0); LYMPH % 42.3 % (24.0-44.0); MEAN CORPUSCULAR HEMOGLOBIN 30.7 pg (27.0-33.0); MEAN CORPUSCULAR VOLUME 93.2 fl (80.0-96.0); MONO # 0.4 10^3/uL (0.0-0.8); MONO % 6.6 % (0.0-5.0); NEUTROPHILS # 2.9 10^3/uL (1.5-8.5); NEUTROPHILS % 47.7 % (36.0-66.0); PLATELET COUNT, AUTOMATED 198 10^3/uL (150-450); RED BLOOD COUNT 5.11 10^6/uL (4.30-6.10); WHITE BLOOD COUNT 6.2 10^3/uL (4.0-10.0)
[2020-01-26 17:20] LABS: ALBUMIN 4.1 GM/DL (3.2-5.2); ALT/SGPT 17 U/L (12-78); BILIRUBIN,TOTAL 0.4 MG/DL (0.2-1.0); BLOOD UREA NITROGEN 17 MG/DL (7-18); CALCIUM LEVEL 8.9 MG/DL (8.8-10.2); CARBON DIOXIDE LEVEL 30 MEQ/L (21-32); CHLORIDE LEVEL 106 MEQ/L (98-107); CREATININE FOR GFR 1.07 MG/DL (0.70-1.30); GLOMERULAR FILTRATION RATE > 60.0 (>49); GLUCOSE, FASTING 97 MG/DL (70-100); POTASSIUM SERUM 4.5 MEQ/L (3.5-5.1); SODIUM LEVEL 139 MEQ/L (136-145); TOTAL PROTEIN 7.1 GM/DL (6.4-8.2)
== END ==
LOC: M LAB REF 16:31
PROVIDERS: ATTEND Physician Assistant
DX: Z13.220 Encounter for screening for lipoid disorders (principal)

== ENCOUNTER → 2020-05-19 | Outpatient (REF) | payer OTHER ==
[2020-05-19 13:59] LABS: BASO % 0.7 % (0.0-1.0); EOS # 0.2 10^3/uL (0.0-0.5); EOS % 3.8 % (0.0-3.0); HEMATOCRIT 45.8 % (42.0-52.0); HEMOGLOBIN 15.3 g/dl (13.5-17.5); LYMPH # 2.6 10^3/uL (1.5-5.0); LYMPH % 43.2 % (24.0-44.0); MEAN CORPUSCULAR HEMOGLOBIN 31.5 pg (27.0-33.0); MEAN CORPUSCULAR HGB CONC 33.4 g/dl (32.0-36.5); MEAN CORPUSCULAR VOLUME 94.4 fl (80.0-96.0); MONO # 0.5 10^3/uL (0.0-0.8); MONO % 8.3 % (2.0-8.0); NEUTROPHILS # 2.6 10^3/uL (1.5-8.5); NEUTROPHILS % 43.8 % (36.0-66.0); PLATELET COUNT, AUTOMATED 242 10^3/uL (150-450); RED BLOOD COUNT 4.85 10^6/uL (4.30-6.10)
[2020-05-19 14:07] LABS: HEMOGLOBIN A1c 5.3 %
[2020-05-19 14:30] LABS: ALT/SGPT 25 U/L (12-78); BILIRUBIN,TOTAL 0.5 MG/DL (0.2-1.0); BLOOD UREA NITROGEN 12 MG/DL (7-18); CALCIUM LEVEL 9.2 MG/DL (8.8-10.2); CARBON DIOXIDE LEVEL 29 MEQ/L (21-32); CHLORIDE LEVEL 105 MEQ/L (98-107); CHOLESTEROL LEVEL 215 MG/DL (<200); CHOLESTEROL RISK RATIO 3.583 (<5); GLOMERULAR FILTRATION RATE > 60.0 (>49); GLUCOSE, FASTING 91 MG/DL (70-100); HDL CHOLESTEROL 60 MG/DL (>40); LDL CHOLESTEROL 135 MG/DL (<100); NON-HDL-C 155 MG/DL; POTASSIUM SERUM 4.5 MEQ/L (3.5-5.1); SODIUM LEVEL 139 MEQ/L (136-145); TOTAL PROTEIN 7.3 GM/DL (6.4-8.2); TRIGLYCERIDES LEVEL 99 MG/DL (<150)
[2020-05-19 15:04] LABS: HIV 1&2 SCREEN CENTAUR NEGATIVE (NEGATIVE)
== END ==
LOC: M LAB REF 12:44
PROVIDERS: ATTEND Physician Assistant
DX: Z79.899 Other long term (current) drug therapy (principal); Z11.4 Encounter for screening for human immunodeficiency virus [HIV]; Z11.59 Encounter for screening for other viral diseases; Z11.3 Encounter for screening for infections with a predominantly sexual mode of transmission; Z12.5 Encounter for screening for malignant neoplasm of prostate

== ENCOUNTER → 2020-08-08 | Outpatient (CLI) | payer OTHER ==
[~2020-08-08] MED LIST changes: +BACTDSTA PO; -SULF1TAB93 PO
--- NOTE | 2020-08-10 12:11 | REP ---
INDICATION: PAIN IN RT HIP injury June 2019 in September 2019, pain COMPARISON: 02/20/2019. TECHNIQUE: Coronal T1, STIR through the pelvis, axial, coronal, sagittal T2 fat sat right hip. FINDINGS: The visualized osseous structures demonstrate normal bone marrow signal. The osseous structures of the right hip are not well evaluated due to the presence of metallic internal fixation in the proximal right femur causing surrounding artifact. There is no definite bone marrow edema or occult fracture. Labrum cannot be evaluated. There does appear to be scattered edema within the obturator externus, adductor brevis and adductor edu muscles suggesting strain/partial tears. There is no gross fluid collection. The visualized intrapelvic structures are unremarkable. IMPRESSION: Limited evaluation of the osseous structures of the right hip due to the presence of metallic internal fixation in the proximal right femur. There does appear to be scattered edema within the obturator externus, adductor brevis and adductor edu muscles suggesting strain/partial tears. <Electronically signed by Neto Arrieta > 08/10/20 [id number]
== END ==
LOC: M RAD 14:33
PROVIDERS: ATTEND Orthopaedic Surgery
DX: M25.551 Pain in right hip (principal)

== ENCOUNTER → 2020-10-26 | Outpatient (REF) | payer OTHER ==
[~2020-10-26] MED LIST changes: +OLAN1TAB16 PO; -OLAN5TAB PO
[2020-10-26 17:31] LABS: ALBUMIN 3.6 GM/DL (3.2-5.2); ALT/SGPT 20 U/L (12-78); BILIRUBIN,TOTAL 0.3 MG/DL (0.2-1.0); BLOOD UREA NITROGEN 9 MG/DL (7-18); CALCIUM LEVEL 8.3 MG/DL (8.8-10.2); CARBON DIOXIDE LEVEL 26 MEQ/L (21-32); CHLORIDE LEVEL 110 MEQ/L (98-107); CHOLESTEROL LEVEL 173 MG/DL (<200); CREATININE FOR GFR 0.92 MG/DL (0.70-1.30); GLOMERULAR FILTRATION RATE > 60.0 (>49); GLUCOSE, FASTING 86 MG/DL (70-100); HDL CHOLESTEROL 62 MG/DL (>40); LDL CHOLESTEROL 89 MG/DL (<100); NON-HDL-C 111 MG/DL; SODIUM LEVEL 141 MEQ/L (136-145); TRIGLYCERIDES LEVEL 109 MG/DL (<150)
== END ==
LOC: M LAB REF 16:21
PROVIDERS: ATTEND Physician Assistant
DX: R74.8 Abnormal levels of other serum enzymes (principal); E78.5 Hyperlipidemia, unspecified

== ENCOUNTER → 2021-05-12 | Outpatient (CLI) | payer OTHER ==
[~2021-05-12] MED LIST changes: +ISOVUE-300 61% 50ML VIAL As Ordered ONE; +LIDOCAINE 1% MDV 20ML VIAL As Ordered ONE
== END ==
LOC: M RADPRO 09:03
PROVIDERS: ATTEND Orthopaedic Surgery
DX: M25.451 Effusion, right hip (principal)
CPT/HCPCS: 20610; 77002; Q9967

== ENCOUNTER → 2021-07-14 | Outpatient (REF) | payer OTHER ==
[~2021-07-14] MED LIST changes: -ISOVUE-300 61% 50ML VIAL As Ordered ONE; -LIDOCAINE 1% MDV 20ML VIAL As Ordered ONE
[2021-07-14 17:32] LABS: INR 0.98; PROTHROMBIN TIME 13.4 SECONDS (12.7-14.5)
[2021-07-14 17:33] LABS: PARTIAL THROMBOPLASTIN TIME 29.4 SECONDS (25.9-37.0)
[2021-07-14 17:47] LABS: BASO % 0.5 % (0.0-1.0); EOS # 0.2 10^3/uL (0.0-0.5); EOS % 3.6 % (0.0-3.0); HEMATOCRIT 42.6 % (42.0-52.0); HEMOGLOBIN 14.2 g/dl (13.5-17.5); LYMPH # 2.1 10^3/uL (1.5-5.0); LYMPH % 34.5 % (24.0-44.0); MEAN CORPUSCULAR HEMOGLOBIN 31.3 pg (27.0-33.0); MEAN CORPUSCULAR HGB CONC 33.3 g/dl (32.0-36.5); MEAN CORPUSCULAR VOLUME 93.8 fl (80.0-96.0); MONO # 0.4 10^3/uL (0.0-0.8); MONO % 6.8 % (2.0-8.0); NEUTROPHILS # 3.4 10^3/uL (1.5-8.5); NEUTROPHILS % 54.3 % (36.0-66.0); PLATELET COUNT, AUTOMATED 221 10^3/uL (150-450); RED BLOOD COUNT 4.54 10^6/uL (4.30-6.10); WHITE BLOOD COUNT 6.2 10^3/uL (4.0-10.0)
[2021-07-14 19:05] LABS: BLOOD UREA NITROGEN 12 MG/DL (7-18); CALCIUM LEVEL 8.8 MG/DL (8.8-10.2); CARBON DIOXIDE LEVEL 27 MEQ/L (21-32); CHLORIDE LEVEL 107 MEQ/L (98-107); GLOMERULAR FILTRATION RATE > 60.0 (>49); GLUCOSE, FASTING 97 MG/DL (70-100); POTASSIUM SERUM 4.7 MEQ/L (3.5-5.1); SODIUM LEVEL 139 MEQ/L (136-145)
== END ==
LOC: M LAB REF 16:46
PROVIDERS: ATTEND Family Medicine Addiction Medicine
DX: Z01.818 Encounter for other preprocedural examination (principal)